=== PATIENT | male | born 1960 | race Caucasian/White ===

== ENCOUNTER → 2017-02-22 | Outpatient (CLI) | payer OTHER ==
[~2017-02-22] MED LIST: ARTHRITIS MED PO; ASPI-496 PO; ASPI-515 PO; CELE50CA PO; CHOLESTEROL PO; DICL75TA2 PO; FURO-93 PO; HYDR-3240 PO; METO50TA6 PO; NONE PER PT; POTA10TA11 PO; SIMV20TA3 PO; WARF5TAB PO
== END | disposition home or self-care (01) ==
LOC: CFH 16:17 → MERGE 16:17
PROVIDERS: ATTEND Internal Medicine Cardiovascular Disease
DX: R53.83 Other fatigue (principal)
CPT/HCPCS: 93306

== ENCOUNTER 2017-08-15 15:19 | Inpatient (IN) | payer OTHER ==
[~2017-08-15] VITALS: Ht 175.3 cm; Wt 84.4 kg
[2017-08-15] MEDS ORDERED: SODIUM CHLORIDE FLUSH 10ML SYR IVF ONE (17:00)
[2017-08-15] MEDS ORDERED: CHOL20002 PO (17:06)
[2017-08-15] MEDS ORDERED: DICL75TA2 PO (17:07)
[2017-08-15] MEDS ORDERED: PRAV10TA2 PO (17:08)
[2017-08-15 17:18] LABS: BASOPHILS # (AUTO) 0.06 x10^3/uL (0-0.1); BASOPHILS % (AUTO) 1 % (0-1); EOSINOPHILS # (AUTO) 0.15 x10^3/uL (0-0.4); EOSINOPHILS % (AUTO) 2 % (1-7); LYMPHOCYTES # (AUTO) 1.35 x10^3/uL (1-3.4); LYMPHOCYTES % (AUTO) 18 % (22-44); MD NO; MEAN CORPUSCULAR HEMOGLOBIN 30.5 pg (27.5-34.5); MEAN CORPUSCULAR HGB CONC 33.6 g/dL (33.2-36.2); MEAN CORPUSCULAR VOLUME 90.8 fL (81-97); MEAN PLATELET VOLUME 8.3 fL (7.4-10.4); MONOCYTES # (AUTO) 0.48 x10^3/uL (0.2-0.8); MONOCYTES % (AUTO) 6 % (2-9); NEUTROPHILS # (AUTO) 5.51 x10^3/uL (1.8-6.8); NEUTROPHILS % (AUTO) 73 % (42-75); PLATELET COUNT 192 x10^3/uL (130-400); RED CELL DISTRIBUTION WIDTH 13.6 % (9.4-14.8)
[2017-08-15 17:29] LABS: CALCIUM 8.7 mg/dL (8.5-10.1); CHLORIDE 111 mmol/L (98-107)
[2017-08-15 17:37] LABS: ALANINE AMINOTRANSFERASE 23 U/L (12-78); ALBUMIN 4.1 g/dL (3.4-5.0); ALKALINE PHOSPHATASE 97 U/L (45-117); ANION GAP 7 mmol/L (5-15); BILIRUBIN,TOTAL 0.8 mg/dL (0.2-1.0); CREATININE 1.01 mg/dL (0.7-1.3); TOTAL PROTEIN 7.1 g/dL (6.4-8.2); TROPONIN I < 0.015 ng/mL (0.000-0.045)
[2017-08-15] MEDS ORDERED: SODIUM CHLORIDE FLUSH 10ML SYR IVF PRN (18:30)
[2017-08-15 19:05] VITALS: BP 132/81
[2017-08-15] MEDS ORDERED: PROMETHAZINE 25 MG/ML, 1ML IM PRN (19:30)
[2017-08-15] MEDS ORDERED: WARFARIN MECH. VALVE PROTOCOL 2.5 to 3.5 XX PRN (19:30)
[2017-08-15] MEDS ORDERED: ONDANSETRON 2MG/ML, 2ML IVPush PRN (19:30)
[2017-08-15] MEDS ORDERED: ACETAMINOPHEN 325 MG TABLET PO PRN (19:30)
[2017-08-15] MEDS ORDERED: hydrALAzine 20 MG/ML, 1ML IVPush PRN (19:30)
[2017-08-15] MEDS ORDERED: MORPHINE SULFATE 4 MG/ML, 1ML IVPush PRN (19:30)
[2017-08-15] MEDS ORDERED: POLYETHYLENE GLYCOL 17 GM PACKET PO PRN (19:30)
[2017-08-15] MEDS ORDERED: OXYcodone IR 5MG TABLET PO PRN (19:30)
[2017-08-15] MEDS ORDERED: ONDANSETRON ODT 4 MG PO PRN (19:30)
[2017-08-15 19:44] LABS: INTERNATIONAL NORMALIZED RATIO 0.99 (0.93-1.1); PROTHROMBIN TIME 10.3 Seconds (9.6-11.5)
[2017-08-15] MEDS ORDERED: OMNIPAQUE 350 MG/ML, 100ML BOTTLE ONE (19:46)
[2017-08-15 19:59] LABS: FREE T4 (FREE THYROXINE) 1.02 ng/dL (0.76-1.46); THYROID STIMULATING HORMONE 0.297 mIU/L (0.358-3.740)
[2017-08-15] MEDS: HEPARIN 5,000 UNITS/ML, 1ML SQ SCH (20:39)
[2017-08-15] MEDS: PRAVASTATIN 20 MG TABLET PO SCH (20:39)
[2017-08-15] MEDS: DICLOFENAC SODIUM 75 MG TABLET.DR PO SCH (20:39)
[2017-08-15] MEDS: SODIUM CHLORIDE 0.9% 1,000 ML IV SCH (20:39)
[2017-08-15 23:20] LABS: TROPONIN I < 0.015 ng/mL (0.000-0.045)
[2017-08-16 00:28] VITALS: BP 106/66
[2017-08-16 05:30] LABS: BASOPHILS # (AUTO) 0.02 x10^3/uL (0-0.1); BASOPHILS % (AUTO) 0 % (0-1); EOSINOPHILS # (AUTO) 0.17 x10^3/uL (0-0.4); EOSINOPHILS % (AUTO) 3 % (1-7); LYMPHOCYTES # (AUTO) 1.14 x10^3/uL (1-3.4); LYMPHOCYTES % (AUTO) 20 % (22-44); MD NO; MEAN CORPUSCULAR HEMOGLOBIN 30.3 pg (27.5-34.5); MEAN CORPUSCULAR HGB CONC 33.3 g/dL (33.2-36.2); MEAN PLATELET VOLUME 8.5 fL (7.4-10.4); MONOCYTES # (AUTO) 0.43 x10^3/uL (0.2-0.8); MONOCYTES % (AUTO) 8 % (2-9); NEUTROPHILS # (AUTO) 3.83 x10^3/uL (1.8-6.8); NEUTROPHILS % (AUTO) 68 % (42-75); PLATELET COUNT 177 x10^3/uL (130-400); RED BLOOD COUNT 4.48 x10^6/uL (4.38-5.82); RED CELL DISTRIBUTION WIDTH 13.8 % (9.4-14.8)
[2017-08-16] MEDS: SODIUM CHLORIDE 0.9% 1,000 ML IV SCH (05:30)
[2017-08-16] MEDS: HEPARIN 5,000 UNITS/ML, 1ML SQ SCH ×3 (05:31→19:55)
[2017-08-16 05:33] LABS: CHLORIDE 111 mmol/L (98-107)
[2017-08-16 05:54] LABS: ALANINE AMINOTRANSFERASE 20 U/L (12-78); ALBUMIN 3.6 g/dL (3.4-5.0); ALKALINE PHOSPHATASE 85 U/L (45-117); ANION GAP 7 mmol/L (5-15); BILIRUBIN,TOTAL 0.7 mg/dL (0.2-1.0); CALCIUM 8.4 mg/dL (8.5-10.1); CHOL/HDL RATIO 5.1; CHOLESTEROL, TOTAL 167 mg/dL (140-239); CREATININE 0.93 mg/dL (0.7-1.3); HDL CHOL % 20 % (26-37); HDL CHOLESTEROL (DIRECT) 33 mg/dL (40-60); LDL CHOLESTEROL,CALCULATED 96 mg/dL (54-169); LDL/HDL RATIO 2.9 (0.5-3.0); TOTAL PROTEIN 6.3 g/dL (6.4-8.2); TRIGLYCERIDES 192 mg/dL (50-200); TROPONIN I < 0.015 ng/mL (0.000-0.045); VLDL CHOLESTEROL 38 mg/dL (0-25)
[2017-08-16] MEDS: ASPIRIN 81 MG TABLET EC PO SCH (07:37)
[2017-08-16] MEDS: DICLOFENAC SODIUM 75 MG TABLET.DR PO SCH ×2 (07:38→19:55)
[2017-08-16 07:46] VITALS: BP 98/58
[2017-08-16 10:20] LABS: MICROSCOPIC NOT IND
[2017-08-16 10:28] LABS: CULTURE INDICATED? NO
[2017-08-16 13:03] VITALS: BP 105/64
[2017-08-16] MEDS: PRAVASTATIN 20 MG TABLET PO SCH (19:55)
[2017-08-16 21:10] VITALS: BP 102/61
[2017-08-17 04:05] VITALS: BP 100/59
[2017-08-17] MEDS: HEPARIN 5,000 UNITS/ML, 1ML SQ SCH (05:12)
[2017-08-17 06:32] VITALS: BP 95/65
[2017-08-17] MEDS: ASPIRIN 81 MG TABLET EC PO SCH (07:50)
[2017-08-17] MEDS: DICLOFENAC SODIUM 75 MG TABLET.DR PO SCH (07:50)
== END 2017-08-17 12:23 | disposition home or self-care (01) | DRG 309 ==
LOC: ED 17:58 → EDIP 18:03 → ED 18:12 → 5SO 18:42 → DCLOUNGE 08-17 12:05
PROVIDERS: ADMIT Internal Medicine; ATTEND Internal Medicine
DX: R00.1 Bradycardia, unspecified (principal); H53.129 Transient visual loss, unspecified eye; I95.9 Hypotension, unspecified; E86.0 Dehydration; E78.5 Hyperlipidemia, unspecified; Z96.659 Presence of unspecified artificial knee joint; Z82.49 Family history of ischemic heart disease and other diseases of the circulatory system; Z95.2 Presence of prosthetic heart valve; Z87.891 Personal history of nicotine dependence
CPT/HCPCS: 36415; 70450; 70496; 70498; 71046; 80053; 80061; 81003; 83036; 83735; 84439; 84443; 84484; 85025; 85610; 93005; 93306; 99285; J1644; Q9967; J7030

== ENCOUNTER → 2018-08-14 | Outpatient (CLI) | payer OTHER ==
[~2018-08-14] MED LIST changes: +CHOL20002 PO; -DICL75TA2 PO; +DICL75TA3 PO; +PRAV10TA2 PO
== END | disposition home or self-care (01) ==
LOC: CFH 08:30
PROVIDERS: ATTEND Internal Medicine Cardiovascular Disease
DX: I07.1 Rheumatic tricuspid insufficiency (principal); E78.5 Hyperlipidemia, unspecified; Z87.891 Personal history of nicotine dependence
CPT/HCPCS: 93306

== ENCOUNTER 2018-09-13 07:35 | Day surgery (SDC) | payer OTHER ==
[~2018-09-13] VITALS: Ht 175.3 cm; Wt 71.0 kg
[2018-09-13] MEDS ORDERED: LIDOCAINE 1%, 20ML ONE (07:45)
== END 2018-09-13 10:02 | disposition home or self-care (01) ==
LOC: CACL 07:35
PROVIDERS: ATTEND Internal Medicine Cardiovascular Disease
DX: Z45.09 Encounter for adjustment and management of other cardiac device (principal); R00.1 Bradycardia, unspecified
CPT/HCPCS: 33285; 33286; C1764

== ENCOUNTER 2018-09-20 09:27 | Outpatient (CLI) | payer OTHER | END 2018-09-20 23:59 | disposition home or self-care (01) | LOC: RAD 09:27 | PROVIDERS: ATTEND Nurse Practitioner Family | DX: M47.817 Spondylosis without myelopathy or radiculopathy, lumbosacral region (principal); M51.36 Other intervertebral disc degeneration, lumbar region | CPT/HCPCS: 72110 ==

== ENCOUNTER 2019-05-08 12:19 | Emergency (ER) | payer OTHER ==
[~2019-05-08] VITALS: Ht 177.8 cm; Wt 85.3 kg
[~2019-05-08 12:19] MED LIST changes: +SIMV20TA19 PO; -SIMV20TA3 PO
--- NOTE | 2019-05-08 13:00 | NUR ---
report received from jeffery suarez rn.
[2019-05-08 13:08] LABS: BASOPHILS # (AUTO) 0.05 x10^3/uL (0-0.1); BASOPHILS % (AUTO) 1 % (0-1); EOSINOPHILS # (AUTO) 0.16 x10^3/uL (0-0.4); EOSINOPHILS % (AUTO) 2 % (1-7); LYMPHOCYTES # (AUTO) 1.15 x10^3/uL (1-3.4); LYMPHOCYTES % (AUTO) 14 % (22-44); MD NO; MEAN CORPUSCULAR HEMOGLOBIN 30.4 pg (27.5-34.5); MEAN CORPUSCULAR HGB CONC 33.3 g/dL (33.2-36.2); MEAN CORPUSCULAR VOLUME 91.2 fL (81-97); MEAN PLATELET VOLUME 8.7 fL (7.4-10.4); MONOCYTES # (AUTO) 0.67 x10^3/uL (0.2-0.8); MONOCYTES % (AUTO) 8 % (2-9); NEUTROPHILS # (AUTO) 6.52 x10^3/uL (1.8-6.8); NEUTROPHILS % (AUTO) 76 % (42-75); PLATELET COUNT 167 x10^3/uL (130-400); RED BLOOD COUNT 5.19 x10^6/uL (4.38-5.82); RED CELL DISTRIBUTION WIDTH 13.5 % (9.4-14.8)
[2019-05-08 13:11] LABS: ALBUMIN 4.1 g/dL (3.4-5.0); ANION GAP 4 mmol/L (5-15); CALCIUM 9.1 mg/dL (8.5-10.1); CHLORIDE 107 mmol/L (98-107); CREATININE 1.09 mg/dL (0.7-1.3)
--- NOTE | 2019-05-08 13:13 | NUR ---
pt resting in [facility]. pt's aox4. resps even and unlabored. all monitors in place. call light within reach. rails up x2.
[2019-05-08 13:15] LABS: TROPONIN I < 0.015 ng/mL (0.000-0.045)
[2019-05-08 13:45] VITALS: BP 169/83
--- NOTE | 2019-05-08 13:46 | NUR ---
at dc. pt c/o sore throat/cough x 2 days and requested pain meds for sore throat. [facility] notified and states "no meds for sore throat and dc. his labs look good." Patient given discharge instructions and they have confirmed that they understand the instructions. Patient ambulatory with steady gait.furnace caretaker notified and room needs to be terminal clean.
== END 2019-05-08 13:47 | disposition home or self-care (01) ==
LOC: ED 12:48
DX: R07.2 Precordial pain (principal); R07.89 Other chest pain; J02.9 Acute pharyngitis, unspecified; E78.5 Hyperlipidemia, unspecified
CPT/HCPCS: 36415; 71045; 80048; 82040; 83880; 84484; 85025; 93005; 99285

== ENCOUNTER 2019-08-31 06:13 | Observation (INO) | payer OTHER ==
[~2019-08-31] VITALS: Ht 175.3 cm; Wt 84.5 kg
[~2019-08-31 06:13] MED LIST changes: -WARF5TAB PO; +WARF5TAB2 PO
[2019-08-31] MEDS ORDERED: CEFAZOLIN PMX 1GM/50ML 50 ML IVPB ONE (06:30)
[2019-08-31] MEDS ORDERED: ROSU10TA2 PO (06:36)
[2019-08-31] MEDS ORDERED: CELE200C PO (06:36)
[2019-08-31] MEDS ORDERED: Vitamin B PO (06:37)
[2019-08-31 06:40] VITALS: BP 119/58
[2019-08-31 07:06] LABS: BASOPHILS # (AUTO) 0.04 x10^3/uL (0-0.1); BASOPHILS % (AUTO) 1 % (0-1); EOSINOPHILS # (AUTO) 0.15 x10^3/uL (0-0.4); EOSINOPHILS % (AUTO) 3 % (1-7); LYMPHOCYTES # (AUTO) 0.97 x10^3/uL (1-3.4); LYMPHOCYTES % (AUTO) 18 % (22-44); MD NO; MEAN CORPUSCULAR HEMOGLOBIN 30.5 pg (27.5-34.5); MEAN CORPUSCULAR HGB CONC 32.8 g/dL (33.2-36.2); MEAN PLATELET VOLUME 8.9 fL (7.4-10.4); MONOCYTES # (AUTO) 0.39 x10^3/uL (0.2-0.8); MONOCYTES % (AUTO) 7 % (2-9); NEUTROPHILS # (AUTO) 3.95 x10^3/uL (1.8-6.8); NEUTROPHILS % (AUTO) 72 % (42-75); PLATELET COUNT 160 x10^3/uL (130-400); RED CELL DISTRIBUTION WIDTH 13.8 % (9.4-14.8)
[2019-08-31 07:12] LABS: ANION GAP 6 mmol/L (5-15); CALCIUM 8.6 mg/dL (8.5-10.1); CHLORIDE 111 mmol/L (98-107)
[2019-08-31 07:14] LABS: CREATININE 1.01 mg/dL (0.7-1.3)
[2019-08-31] MEDS ORDERED: CEFAZOLIN 1,000 MG ONE ×2 (07:43→07:44)
[2019-08-31] MEDS ORDERED: FENTANYL PF 100 MCG/2ML ONE ×2 (07:43→08:11)
[2019-08-31] MEDS ORDERED: CEFAZOLIN PMX 1GM/50ML 0 ML ONE (07:43)
[2019-08-31] MEDS ORDERED: MIDAZOLAM 1 MG/ML, 5ML ONE (07:43)
[2019-08-31] MEDS ORDERED: LIDOCAINE 2%, 20ML ONE ×3 (07:43→09:00)
[2019-08-31] MEDS ORDERED: HOLD MEDICATION MC PRN (09:30)
[2019-08-31] MEDS ORDERED: ACETAMINOPHEN 325 MG TABLET PO PRN (09:30)
[2019-08-31 09:49] VITALS: BP 121/82
[2019-08-31] MEDS: SODIUM CHLORIDE 0.9% 1,000 ML IV SCH ×2 (09:55→17:40)
[2019-08-31] MEDS ORDERED: ONDANSETRON 2MG/ML, 2ML IV PRN (10:00)
[2019-08-31 12:09] VITALS: BP 120/81
[2019-08-31] MEDS: SODIUM CHLORIDE FLUSH 10ML SYR IVF SCH ×2 (14:55→20:43)
[2019-08-31] MEDS: HYDROcodone/APAP 5/325 TABLET PO PRN (14:59)
[2019-08-31 15:00] VITALS: BP 129/83
[2019-08-31 19:25] VITALS: BP 108/68
[2019-08-31] MEDS ORDERED: ATORVASTATIN 40 MG TABLET PO SCH (21:00)
[2019-08-31] MEDS ORDERED: ZOLPIDEM 5MG TABLET PO PRN (21:00)
[2019-09-01 01:06] VITALS: BP 105/69
[2019-09-01 07:41] VITALS: BP_SYST 120; BP_SYST 121; BP_DIAS 75; BP_DIAS 78
[2019-09-01] MEDS ORDERED: ACET325T26 PO (08:48)
[2019-09-01] MEDS: SODIUM CHLORIDE FLUSH 10ML SYR IVF SCH (09:00)
[2019-09-01] MEDS ORDERED: HYDR-3237 PO (09:01)
[2019-09-01] MEDS: HYDROcodone/APAP 5/325 TABLET PO PRN (10:01)
== END 2019-09-01 10:45 | disposition home or self-care (01) ==
LOC: CACL 06:13 → 5SO 09:39 → CACL 09:42 → 5SO 09:43 → DCLOUNGE 09-01 10:40
PROVIDERS: ADMIT Internal Medicine Clinical Cardiac Electrophysiology; ATTEND Internal Medicine Clinical Cardiac Electrophysiology
DX: I49.5 Sick sinus syndrome (principal); R42 Dizziness and giddiness; I47.1 Supraventricular tachycardia; I35.9 Nonrheumatic aortic valve disorder, unspecified; I63.9 Cerebral infarction, unspecified; I48.91 Unspecified atrial fibrillation; G47.30 Sleep apnea, unspecified; Z79.899 Other long term (current) drug therapy
CPT/HCPCS: 33208; 36415; 71045; 71046; 80048; 85025; 96360; 96361; 99156; 99157; C1779; C1785; C1892; G0378; J0690; J2250; J3010; J3490; J7030; Q9967